=== PATIENT | female | born 1980 | race Caucasian/White ===

== ENCOUNTER 2018-08-11 17:47 | Outpatient (CLI) | payer OTHER | END 2018-08-11 20:27 | disposition home or self-care (01) | LOC: OBT 17:47 → L-D 17:48 → OBT 20:27 | DX: O24.419 Gestational diabetes mellitus in pregnancy, unspecified control (principal); O09.523 Supervision of elderly multigravida, third trimester; Z3A.35 35 weeks gestation of pregnancy | CPT/HCPCS: 76818; 82962 ==

== ENCOUNTER 2018-08-13 08:57 | Outpatient (CLI) | payer OTHER | END 2018-08-13 10:30 | disposition home or self-care (01) | LOC: OBT 08:57 → L-D 09:01 → OBT 10:30 | DX: O24.419 Gestational diabetes mellitus in pregnancy, unspecified control (principal); O09.523 Supervision of elderly multigravida, third trimester; Z3A.35 35 weeks gestation of pregnancy | CPT/HCPCS: 76818; 82962 ==

== ENCOUNTER 2018-08-16 09:02 | Outpatient (CLI) | payer OTHER | END 2018-08-16 10:35 | disposition home or self-care (01) | LOC: OBT 09:02 → L-D 09:02 → OBT 10:35 | DX: O36.8330 Maternal care for abnormalities of the fetal heart rate or rhythm, third trimester, not applicable or unspecified (principal); O24.419 Gestational diabetes mellitus in pregnancy, unspecified control; O09.523 Supervision of elderly multigravida, third trimester; Z3A.36 36 weeks gestation of pregnancy | CPT/HCPCS: 76815; 76818 ==

== ENCOUNTER 2018-08-19 08:58 | Outpatient (CLI) | payer OTHER | END 2018-08-19 10:50 | disposition home or self-care (01) | LOC: OBT 08:58 → L-D 09:02 → OBT 10:50 | DX: O24.419 Gestational diabetes mellitus in pregnancy, unspecified control (principal); O09.523 Supervision of elderly multigravida, third trimester; Z3A.36 36 weeks gestation of pregnancy | CPT/HCPCS: 76818 ==

== ENCOUNTER 2018-09-12 13:30 | Inpatient (IN) | payer OTHER ==
[2018-09-12] MEDS ORDERED: CARBOPROST 250 MCG INJ IM (14:30)
[2018-09-12] MEDS ORDERED: LIDOCAINE 1% (MPF) 30 ML INJ INJ (14:30)
[2018-09-12] MEDS ORDERED: METHYLERGONOVINE 0.2 MG INJ IM (14:30)
[2018-09-12] MEDS ORDERED: MISOPROSTOL 200 MCG TAB PR (14:30)
[2018-09-12] MEDS: LACTATED RINGER'S 1,000 ML IV ×3 (15:01→20:24)
[2018-09-12 15:22] LABS: ADD MAN DIFF? NO
[2018-09-12 15:26] LABS: ABNORMAL IP MESSAGE 1; BASOPHIL # 0.1 10^3/ul (0.0-0.1); BASOPHILS % 0.7 % (0.0-2.0); EOSINOPHILS # 0.3 10^3/ul (0.0-0.5); EOSINOPHILS % 1.9 % (0.0-7.0); HEMATOCRIT 37.4 % (37.0-47.0); HEMOGLOBIN 12.3 g/dl (12.0-16.0); LYMPHOCYTES # 2.2 10^3/ul (0.8-2.9); LYMPHOCYTES % 16.1 % (15.0-51.0); MEAN CORPUSCULAR HEMOGLOBIN 28.3 pg (29.0-33.0); MEAN CORPUSCULAR HGB CONC 32.9 g/dl (32.0-37.0); MEAN CORPUSCULAR VOLUME 86.2 fl (82.0-101.0); MEAN PLATELET VOLUME 9.5 fl (7.4-10.4); MONOCYTE # 1.6 10^3/ul (0.3-0.9); MONOCYTES % 11.3 % (0.0-11.0); NEUTROPHIL # 9.3 10^3/ul (1.6-7.5); NEUTROPHILS % 68.2 % (39.0-77.0); PLATELET COUNT 268 10^3/UL (140-415); RED BLOOD COUNT 4.34 10^6/ul (4.20-5.40); RED CELL DISTRIBUTION WIDTH 15.5 % (11.5-14.5)
[2018-09-12 15:26] LABS: WHITE BLOOD COUNT 13.7 10^3/ul (4.8-10.8)
[2018-09-12 15:29] LABS: POSITIVE DIFF @See below
[2018-09-12 15:42] LABS: GLUCOSE 67 mg/dl (70-220)
[2018-09-12 15:47] LABS: INR 0.86; PROTIME 11.8 Sec (11.9-14.9); PT RATIO 0.9
[2018-09-12 15:48] LABS: PARTIAL THROMBOPLASTIN TIME 28.9 Sec (23.0-35.0)
[2018-09-12] MEDS ORDERED: OXYTOCIN 30 UNITS/LR 500 ML IV (16:30)
[2018-09-12] MEDS: OXYTOCIN 30 UNITS/LR 500 ML IV ×3 (17:28→23:46)
[2018-09-12 20:03] LABS: HEPATITIS B SURFACE ANTIGEN NEGATIVE (NEGATIVE)
[2018-09-12] MEDS ORDERED: FENTAnyl 2MCG/ML-ROPIV 0.2% 100 ML (20:35)
[2018-09-12] MEDS ORDERED: NALOXONE (0.4 MG/ML) INJ IV (21:00)
[2018-09-12 21:46] LABS: RAPID PLASMA REAGIN NONREACTIVE (NR)
[2018-09-12] MEDS: LACTATED RINGER'S 1,000 ML IV* (23:25)
[2018-09-12] MEDS: FENTAnyl 2MCG/ML-ROPIV 0.2% 100 ML BAG EPI (23:46)
[2018-09-13] MEDS ORDERED: BENZOCAINE 20% 56 ML SPRAY TOP (02:30)
[2018-09-13] MEDS ORDERED: HYDROCODONE/APAP (5/325) TAB PO (02:30)
[2018-09-13] MEDS ORDERED: OXYTOCIN 30 UNITS/LR 500 ML IV (02:30)
[2018-09-13] MEDS ORDERED: ACETAMINOPHEN 325 MG TAB PO (02:30)
[2018-09-13] MEDS ORDERED: CARBOPROST 250 MCG INJ IM (02:30)
[2018-09-13] MEDS ORDERED: WITCH HAZEL/GLYCERIN PAD PR (02:30)
[2018-09-13] MEDS ORDERED: METHYLERGONOVINE 0.2 MG INJ IM (02:30)
[2018-09-13] MEDS ORDERED: MISOPROSTOL 200 MCG TAB PR (02:30)
[2018-09-13] MEDS ORDERED: DIBUCAINE 1% 30 GM OINT TOP (02:30)
[2018-09-13] MEDS: LACTATED RINGER'S 1,000 ML IV* ×2 (03:35→18:21)
[2018-09-13] MEDS: IBUPROFEN 600 MG TAB PO ×4 (05:41→23:34)
[2018-09-13 08:24] LABS: ADD MAN DIFF? NO
[2018-09-13 08:27] LABS: ABNORMAL IP MESSAGE 1; BASOPHIL # 0.1 10^3/ul (0.0-0.1); BASOPHILS % 0.3 % (0.0-2.0); EOSINOPHILS # 0.1 10^3/ul (0.0-0.5); EOSINOPHILS % 0.4 % (0.0-7.0); HEMATOCRIT 36.2 % (37.0-47.0); HEMOGLOBIN 11.9 g/dl (12.0-16.0); LYMPHOCYTES # 2.1 10^3/ul (0.8-2.9); LYMPHOCYTES % 10.4 % (15.0-51.0); MEAN CORPUSCULAR HEMOGLOBIN 28.3 pg (29.0-33.0); MEAN CORPUSCULAR HGB CONC 32.9 g/dl (32.0-37.0); MEAN PLATELET VOLUME 9.8 fl (7.4-10.4); MONOCYTE # 1.6 10^3/ul (0.3-0.9); MONOCYTES % 8.2 % (0.0-11.0); NEUTROPHIL # 15.8 10^3/ul (1.6-7.5); NEUTROPHILS % 79.5 % (39.0-77.0); PLATELET COUNT 267 10^3/UL (140-415); RED BLOOD COUNT 4.21 10^6/ul (4.20-5.40); RED CELL DISTRIBUTION WIDTH 15.5 % (11.5-14.5)
[2018-09-13 08:27] LABS: WHITE BLOOD COUNT 19.8 10^3/ul (4.8-10.8)
[2018-09-13 08:30] LABS: POSITIVE DIFF @See below
[2018-09-13] MEDS: SENNA/DOCUSATE NA (8.6MG/50MG) TAB PO ×2 (08:57→21:20)
[2018-09-14] MEDS: LACTATED RINGER'S 1,000 ML IV* ×3 (02:21→20:52)
[2018-09-14] MEDS: IBUPROFEN 600 MG TAB PO ×3 (05:51→18:57)
[2018-09-14] MEDS: SENNA/DOCUSATE NA (8.6MG/50MG) TAB PO (08:36)
[2018-09-14 08:37] LABS: ADD MAN DIFF? NO
[2018-09-14 08:45] LABS: BASOPHIL # 0.1 10^3/ul (0.0-0.1); BASOPHILS % 0.4 % (0.0-2.0); EOSINOPHILS # 0.5 10^3/ul (0.0-0.5); EOSINOPHILS % 3.8 % (0.0-7.0); HEMATOCRIT 36.7 % (37.0-47.0); HEMOGLOBIN 11.9 g/dl (12.0-16.0); LYMPHOCYTES # 3.3 10^3/ul (0.8-2.9); LYMPHOCYTES % 24.5 % (15.0-51.0); MEAN CORPUSCULAR HEMOGLOBIN 28.2 pg (29.0-33.0); MEAN CORPUSCULAR HGB CONC 32.4 g/dl (32.0-37.0); MEAN PLATELET VOLUME 9.4 fl (7.4-10.4); MONOCYTE # 1.3 10^3/ul (0.3-0.9); MONOCYTES % 9.6 % (0.0-11.0); NEUTROPHILS % 59.7 % (39.0-77.0); PLATELET COUNT 284 10^3/UL (140-415); RED BLOOD COUNT 4.22 10^6/ul (4.20-5.40); RED CELL DISTRIBUTION WIDTH 15.9 % (11.5-14.5)
[2018-09-14 08:45] LABS: WHITE BLOOD COUNT 13.4 10^3/ul (4.8-10.8)
[2018-09-14] MEDS: DIPHTH/TET/ACEL PERTUSS (ADULT) 0.5 ML VIAL IM* (19:56)
== END 2018-09-14 20:55 | disposition home or self-care (01) | DRG 807 ==
LOC: PP1 09-13 02:02 → L-D 13:30
PROVIDERS: Obstetrics & Gynecology
PROC: 10E0XZZ Delivery of Products of Conception, External Approach (ICD-10-PCS; principal; 2018-09-12 14:00)
PROC: 0KQM0ZZ Repair Perineum Muscle, Open Approach (ICD-10-PCS; 2018-09-12 14:00)
DX: O70.1 Second degree perineal laceration during delivery (principal); Z37.0 Single live birth; Z3A.39 39 weeks gestation of pregnancy
CPT/HCPCS: 62322; 76815; 82947; 82962; 85025; 85610; 85730; 86592; 86850; 86900; 86901; 87340; 99464